=== PATIENT | male | born 1975 | race Caucasian/White ===

== ENCOUNTER 2018-09-09 15:09 | Emergency (ER) | payer MEDICARE, MEDICAID ==
[2018-09-09 15:39] VITALS: BP 119/72
--- NOTE | 2018-09-09 16:18 | EDM.PDOC ---
ED HPI GENERAL MEDICAL PROBLEM - General Chief Complaint: ENT Problem Stated Complaint: SINUS/COLD Time Seen by Provider: 09/09/18 16:05 Source of Information: Reports: Patient, Old Records, RN History Limitations: Reports: No Limitations - History of Present Illness INITIAL COMMENTS - FREE TEXT/NARRATIVE: 43 yo male presents with congestion, low grade fever and a dry cough since yesterday. No SOB. Has not had a flu vaccine. Onset: Gradual Onset Date: 09/08/18 Duration: Day(s): (1+), Waxing/Waning Location: Reports: Face, Chest Quality: Reports: Other (no pain) Severity: Mild Improves with: Reports: None Worsens with: Reports: Other (uncertain) Context: Reports: Other (See HPI) Associated Symptoms: Reports: Cough (dry, not severe.), Fever/Chills. Denies: Nausea/Vomiting, Rash, Shortness of Breath Treatments [employer]: Reports: Other (see below) (cold med) - Related Data Allergies Allergy/AdvReac Type Severity Reaction Status Date / Time No Known Allergies Allergy Verified 09/09/18 15:31 Home Meds: Home Meds Ibuprofen 800 mg PO TID 10/14/14 [History] Simvastatin [Zocor] 20 mg PO DAILY 10/14/14 [History] Venlafaxine HCl [Venlafaxine ER] 75 mg PO DAILY 10/14/14 [History] glyBURIDE [Micronase] 2.5 mg PO DAILY 10/14/14 [History] Dulaglutide [Trulicity] 09/09/18 [History] metFORMIN [Glucophage] 09/09/18 [History] Past Medical History - Past Health History Medical/Surgical History: Denies Medical/Surgical History Cardiovascular History: Reports: High Cholesterol, Hypertension Psychiatric History: Reports: Depression Endocrine/Metabolic History: Reports: Diabetes, Type II Social & Family History - Tobacco Use Smoking Status *Q: Current Every Day Smoker Years of Tobacco use: 22 Packs/Tins Daily: 0.5 ED ROS ENT - Review of Systems Review Of Systems: See Below Constitutional: Reports: Fever HEENT: Reports: Rhinitis, Sinus Problem. Denies: Ear Discharge, Ear Pain, Eye Discharge Respiratory: Reports: Cough. Denies: Shortness of Breath, Wheezing, Pleuritic Chest Pain, Sputum, Hemoptysis Cardiovascular: Reports: No Symptoms Endocrine: Reports: No Symptoms GI/Abdominal: Reports: No Symptoms : Reports: No Symptoms Musculoskeletal: Reports: No Symptoms Skin: Reports: No Symptoms Neurological: Reports: No Symptoms Psychiatric: Reports: No Symptoms ED EXAM, ENT - Physical Exam Exam: See Below Exam Limited By: No Limitations General Appearance: Alert, WD/WN, No Apparent Distress Eye Exam: Bilateral Eye: Normal Inspection Ears: Normal External Exam, Normal Canal, Hearing Grossly Normal, Normal TMs Nose: Normal Inspection, Normal Mucousa, No Blood, Clear Rhinorrhea Mouth/Throat: Normal Inspection, Normal Lips, Normal Oropharynx, Normal Teeth Head: Atraumatic, Normocephalic Neck: Normal Inspection, Non-Tender Respiratory/Chest: No Respiratory Distress, Lungs Clear, Normal Breath Sounds, No Accessory Muscle Use Cardiovascular: Regular Rate, Rhythm, No Edema Extremities: Normal Inspection Neurological: Alert, Oriented, CN II-XII Intact, Normal Cognition, No Motor/ Sensory Deficits Psychiatric: Normal Affect, Normal Mood Skin: Warm, Dry, Intact, Normal Color, No Rash Lymphatic: No Adenopathy Course - Vital Signs Last Recorded V/S: Last Vital Signs Temp 36.6 C 09/09/18 15:37 Pulse 90 09/09/18 15:37 Resp 14 09/09/18 15:37 BP 119/72 09/09/18 15:37 Pulse Ox 92 L 09/09/18 15:37 Departure - Departure Time of Disposition: 16:45 Disposition: Home, Self-Care 01 Condition: Fair Clinical Impression: Viral syndrome - Discharge Information *PRESCRIPTION DRUG MONITORING PROGRAM REVIEWED*: No *COPY OF PRESCRIPTION DRUG MONITORING REPORT IN PATIENT LORETO: No Instructions: Viral Respiratory Infection, [id number] Referrals: Oscar Francisco MD [Primary Care Provider] - Forms: ED Department Discharge Additional Instructions: Take acetaminophen 1000 mg every 6 hrs for pain/fever control. Drink lots of fluids and get ample rest. Frequent hand washing to prevent spread. Use Sudafed for congestion. Use Robitussin AC for cough and sore throat symptoms. Recheck with your doctor as needed.
== END 2018-09-09 16:58 | disposition home or self-care (01) ==
LOC: JP.ED 15:09
DX: B34.9 Viral infection, unspecified (principal); E11.9 Type 2 diabetes mellitus without complications; I10 Essential (primary) hypertension; E78.00 Pure hypercholesterolemia, unspecified; F17.210 Nicotine dependence, cigarettes, uncomplicated; Z79.84 Long term (current) use of oral hypoglycemic drugs; Z79.899 Other long term (current) drug therapy
CPT/HCPCS: 87804; 87804-59; 99283